=== PATIENT | male | born 1940 | race Caucasian/White ===

== ENCOUNTER 2016-08-19 00:04 | Inpatient (IN) | payer MEDICARE, OTHER ==
[~2016-08-19] VITALS: Ht 182.9 cm; Wt 74.8 kg
[2016-08-19] VITALS (54 sets, daily range): BP systolic 75–110; RESP 16–22; TEMP 98.9–101.3; BMI 22.4
[2016-08-19] MEDS ORDERED: SODIUM CHLORIDE 0.9% 1,000 ML ONE (00:44)
[2016-08-19] MEDS ORDERED: PIPER/TAZO 3.375 GM PYXIS ONE (00:44)
[2016-08-19] MEDS ORDERED: SODIUM CHLORIDE 0.9% 100 ML IV ONE (00:44)
[2016-08-19] MEDS ORDERED: DILTIAZEM 50 MG/10 ML VIAL IV ONE ×2 (02:51→14:05)
[2016-08-19] MEDS ORDERED: ONDANSETRON 4 MG VIAL ONE ×2 (03:02→04:18)
[2016-08-19] MEDS ORDERED: DEXTROSE 50% SYRINGE 50 ML IV PRN (03:35)
[2016-08-19] MEDS ORDERED: PHARMACY TO DOSE VANCOMYCIN IV SCH (03:35)
[2016-08-19] MEDS ORDERED: PHARMACY TO DOSE ZOSYN IV SCH (03:35)
[2016-08-19] MEDS ORDERED: GLUCAGON 1 MG VIAL IM PRN (03:35)
[2016-08-19] MEDS ORDERED: SALINE FLUSH 10 ML FLUSH PRN (03:35)
[2016-08-19] MEDS ORDERED: ACETAMINOPHEN 325 MG TAB ONE (04:19)
[2016-08-19] MEDS ORDERED: ACETAMINOPHEN 650 MG/20.3 ML UDC ONE (04:22)
[2016-08-19] MEDS: **NOTE TO NURSE XX SCH ×2 (05:55→08:02)
[2016-08-19] MEDS: SODIUM CHLORIDE 0.9% FLUSH BAG 500 ML IV SCH (06:00)
[2016-08-19] MEDS ORDERED: DILTIAZEM 125 MG in DEXTROSE 125 ML IV PUSH ONE ×2 (06:05→13:50)
[2016-08-19] MEDS: CARDIZEM 1 MG/ML DRIP 125 ML IV SCH (06:26)
[2016-08-19] MEDS ORDERED: LEVOTHYROXINE 0.125 MG TAB PO SCH (07:00)
[2016-08-19] MEDS: PIPERACIL/TAZO 4.5GM/100ML 100 ML IV SCH ×3 (07:41→18:07)
[2016-08-19] MEDS: SALINE FLUSH 10 ML FLUSH SCH ×2 (07:58→19:40)
[2016-08-19] MEDS: VALPROIC ACID 250 MG/5 ML UDC GTUBE SCH ×2 (07:59→17:02)
[2016-08-19] MEDS ORDERED: DILTIAZEM 60 MG TAB PO SCH (08:00)
[2016-08-19] MEDS ORDERED: LINEZOLID 600 MG/300 ML 300 ML IV SCH (08:00)
[2016-08-19] MEDS: METOPROLOL TART 50 MG TAB GTUBE SCH ×2 (08:02→21:33)
[2016-08-19] MEDS: ASPIRIN 81 MG CHEW TAB GTUBE SCH (08:02)
[2016-08-19] MEDS ORDERED: SODIUM CHLORIDE 0.9% 1,000 ML IV ONE (11:40)
[2016-08-19] MEDS: DUONEB INH SCH ×3 (12:00→23:54)
[2016-08-19] MEDS: DILTIAZEM CD 180 MG CAP GTUBE SCH (16:09)
[2016-08-19] MEDS ORDERED: MISSING DOSE XX ONE ×4 (16:15→23:55)
[2016-08-19] MEDS ORDERED: ACETAMINOPHEN 325 MG TAB GTUBE PRN (18:30)
[2016-08-19] MEDS: SODIUM CHLORIDE 0.9% 1,000 ML IV SCH (19:10)
[2016-08-19] MEDS: LINEZOLID 600 MG TAB GTUBE SCH (21:33)
[2016-08-20] MEDS: PIPERACIL/TAZO 4.5GM/100ML 100 ML IV SCH ×5 (00:10→23:47)
[2016-08-20] MEDS: SODIUM CHLORIDE 0.9% FLUSH BAG 500 ML IV SCH (06:00)
[2016-08-20] MEDS: LEVOTHYROXINE 0.125 MG TAB GTUBE SCH (06:38)
[2016-08-20 07:23] VITALS: BP_SYST 121; RESP 18; TEMP 99
[2016-08-20] MEDS ORDERED: POTASSIUM PHOSPHATE 30 MMOL in SODIUM CHLORIDE 0.9% 250 ML IV ONE (07:25)
[2016-08-20] MEDS ORDERED: KCL 20 MEQ/15 ML UDC PO ONE (07:30)
[2016-08-20] MEDS: DUONEB INH SCH ×3 (08:20→19:09)
[2016-08-20] MEDS: METOPROLOL TART 50 MG TAB GTUBE SCH ×2 (09:12→21:42)
[2016-08-20] MEDS: ASPIRIN 81 MG CHEW TAB GTUBE SCH (09:12)
[2016-08-20] MEDS: FAMOTIDINE 40 MG TAB GTUBE SCH (09:12)
[2016-08-20] MEDS: VALPROIC ACID 250 MG/5 ML UDC GTUBE SCH ×4 (09:12→23:46)
[2016-08-20] MEDS: DILTIAZEM CD 180 MG CAP GTUBE SCH (09:12)
[2016-08-20] MEDS: LINEZOLID 600 MG TAB GTUBE SCH ×2 (09:12→21:42)
[2016-08-20] MEDS: SALINE FLUSH 10 ML FLUSH SCH ×2 (09:12→20:00)
[2016-08-20 10:41] VITALS: Ht 182.9 cm; Wt 74.8 kg
[2016-08-20 11:14] VITALS: BP_SYST 107; RESP 16; TEMP 98.7
[2016-08-20] MEDS: SACCHA BOULARDII 250MG CAP GTUBE SCH ×2 (11:59→21:42)
[2016-08-20 15:08] VITALS: BP_SYST 133; RESP 18; TEMP 98.4
[2016-08-20] MEDS ORDERED: MISSING DOSE XX ONE (18:25)
[2016-08-20 19:00] VITALS: BP_SYST 118; RESP 20; TEMP 98.8
[2016-08-20 22:58] VITALS: BP_SYST 118; RESP 24; TEMP 96.7
[2016-08-21] MEDS: DUONEB INH SCH ×5 (00:04→23:29)
[2016-08-21 02:53] VITALS: BP_SYST 109; RESP 26; TEMP 99.7
[2016-08-21] MEDS ORDERED: DILTIAZEM 50 MG/10 ML VIAL IV ONE (05:10)
[2016-08-21] MEDS: SODIUM CHLORIDE 0.9% FLUSH BAG 500 ML IV SCH (06:00)
[2016-08-21] MEDS: PIPERACIL/TAZO 4.5GM/100ML 100 ML IV SCH (06:22)
[2016-08-21] MEDS: LEVOTHYROXINE 0.125 MG TAB GTUBE SCH (06:22)
[2016-08-21 07:10] VITALS: BP_SYST 126; RESP 20; TEMP 99.7
[2016-08-21] MEDS: SODIUM CHLORIDE 0.9% 1,000 ML IV SCH (07:27)
[2016-08-21] MEDS: DILTIAZEM CD 180 MG CAP GTUBE SCH ×2 (09:00→10:05)
[2016-08-21] MEDS: LINEZOLID 600 MG TAB GTUBE SCH (09:00)
[2016-08-21] MEDS: METOPROLOL TART 50 MG TAB GTUBE SCH ×2 (09:00→16:46)
[2016-08-21] MEDS ORDERED: PHARMACY TO DOSE CEFEPIME IV SCH (09:05)
[2016-08-21] MEDS ORDERED: Furosemide 40 MG/4 ML VIAL IV ONE (09:10)
[2016-08-21] MEDS ORDERED: POTASSIUM PHOSPHATE 30 MMOL in SODIUM CHLORIDE 0.9% 250 ML IV ONE (09:10)
[2016-08-21] MEDS: SALINE FLUSH 10 ML FLUSH SCH ×2 (10:03→21:18)
[2016-08-21] MEDS: VALPROIC ACID 250 MG/5 ML UDC GTUBE SCH ×3 (10:04→23:05)
[2016-08-21] MEDS: FAMOTIDINE 40 MG TAB GTUBE SCH (10:05)
[2016-08-21] MEDS: ASPIRIN 81 MG CHEW TAB GTUBE SCH (10:05)
[2016-08-21] MEDS: SACCHA BOULARDII 250MG CAP GTUBE SCH ×2 (10:06→21:18)
[2016-08-21] MEDS: AMOXICILLIN 400 MG/5 ML GTUBE SCH ×3 (10:08→21:19)
[2016-08-21] MEDS: CEFEPIME 2000 MG/100 ML D5W 100 ML IV SCH ×3 (10:09→23:05)
[2016-08-21] MEDS ORDERED: DILTIAZEM 125 MG in DEXTROSE 125 ML IV PUSH ONE (11:05)
[2016-08-21 12:35] VITALS: BP_SYST 103; RESP 22
[2016-08-21 15:22] VITALS: BP_SYST 119; RESP 20; TEMP 97.9
[2016-08-21] MEDS ORDERED: MISSING DOSE XX ONE (16:15)
[2016-08-21 20:06] VITALS: BP_SYST 128; RESP 22; TEMP 97.3
[2016-08-21 22:43] VITALS: BP_SYST 142; RESP 22; TEMP 96.5
[2016-08-22] MEDS: METOPROLOL TART 50 MG TAB GTUBE SCH ×2 (00:18→09:00)
[2016-08-22 02:29] VITALS: BP_SYST 148; RESP 22; TEMP 96.7
[2016-08-22] MEDS: LEVOTHYROXINE 0.125 MG TAB GTUBE SCH (06:24)
[2016-08-22] MEDS: SODIUM CHLORIDE 0.9% FLUSH BAG 500 ML IV SCH (06:25)
[2016-08-22 07:50] VITALS: BP_SYST 138; RESP 20; TEMP 98.4
[2016-08-22] MEDS: SALINE FLUSH 10 ML FLUSH SCH ×2 (08:00→20:52)
[2016-08-22] MEDS: VALPROIC ACID 250 MG/5 ML UDC GTUBE SCH ×3 (08:00→23:23)
[2016-08-22] MEDS: DUONEB INH SCH ×4 (08:07→22:38)
[2016-08-22] MEDS: AMOXICILLIN 400 MG/5 ML GTUBE SCH ×3 (09:00→20:52)
[2016-08-22] MEDS ORDERED: Furosemide 20 MG/2 ML VIAL IV ONE (10:00)
[2016-08-22] MEDS: FAMOTIDINE 40 MG TAB GTUBE SCH (10:17)
[2016-08-22] MEDS: DILTIAZEM CD 180 MG CAP GTUBE SCH (10:17)
[2016-08-22] MEDS: SACCHA BOULARDII 250MG CAP GTUBE SCH ×2 (10:17→20:52)
[2016-08-22] MEDS: CEFEPIME 2000 MG/100 ML D5W 100 ML IV SCH ×3 (10:18→23:24)
[2016-08-22] MEDS: ASPIRIN 81 MG CHEW TAB GTUBE SCH (10:18)
[2016-08-22 11:37] VITALS: BP_SYST 145; RESP 20; TEMP 99.3
[2016-08-22 14:43] VITALS: BP_SYST 156; RESP 22; TEMP 98.1
[2016-08-22] MEDS: METOPROLOL TART 25 MG TAB GTUBE SCH ×2 (16:48→23:22)
[2016-08-22] MEDS ORDERED: MISSING DOSE XX ONE (19:20)
[2016-08-22 20:11] VITALS: BP_SYST 99; RESP 20; TEMP 98.5
[2016-08-23] VITALS (11 sets, daily range): BP systolic 114–148; RESP 18–20; TEMP 96.7–99.5
[2016-08-23] MEDS: SODIUM CHLORIDE 0.9% FLUSH BAG 500 ML IV SCH (05:27)
[2016-08-23] MEDS: LEVOTHYROXINE 0.125 MG TAB GTUBE SCH (05:29)
[2016-08-23] MEDS: DUONEB INH SCH ×3 (07:48→19:18)
[2016-08-23] MEDS: CEFEPIME 2000 MG/100 ML D5W 100 ML IV SCH ×2 (07:51→17:02)
[2016-08-23] MEDS: VALPROIC ACID 250 MG/5 ML UDC GTUBE SCH ×2 (09:05→16:59)
[2016-08-23] MEDS: SALINE FLUSH 10 ML FLUSH SCH ×2 (09:05→20:02)
[2016-08-23] MEDS: AMOXICILLIN 400 MG/5 ML GTUBE SCH ×3 (09:06→20:02)
[2016-08-23] MEDS: METOPROLOL TART 25 MG TAB GTUBE SCH ×2 (09:06→17:00)
[2016-08-23] MEDS: FAMOTIDINE 40 MG TAB GTUBE SCH (09:06)
[2016-08-23] MEDS: DILTIAZEM CD 180 MG CAP GTUBE SCH (09:06)
[2016-08-23] MEDS: ASPIRIN 81 MG CHEW TAB GTUBE SCH (09:06)
[2016-08-23] MEDS: SACCHA BOULARDII 250MG CAP GTUBE SCH ×2 (09:06→20:02)
[2016-08-23] MEDS ORDERED: DILTIAZEM 125 MG in DEXTROSE 125 ML IV PUSH ONE (23:00)
[2016-08-23] MEDS: CARDIZEM 1 MG/ML DRIP 125 ML IV SCH (23:18)
[2016-08-24] VITALS (21 sets, daily range): BP systolic 86–147; RESP 20; TEMP 98–98.6
[2016-08-24] MEDS: DUONEB INH SCH ×3 (00:18→11:45)
[2016-08-24] MEDS: VALPROIC ACID 250 MG/5 ML UDC GTUBE SCH ×2 (00:35→11:10)
[2016-08-24] MEDS: METOPROLOL TART 25 MG TAB GTUBE SCH ×2 (00:36→11:10)
[2016-08-24] MEDS: CEFEPIME 2000 MG/100 ML D5W 100 ML IV SCH ×2 (00:36→11:09)
[2016-08-24] MEDS: SODIUM CHLORIDE 0.9% FLUSH BAG 500 ML IV SCH (05:53)
[2016-08-24] MEDS: LEVOTHYROXINE 0.125 MG TAB GTUBE SCH (05:54)
[2016-08-24] MEDS: FAMOTIDINE 40 MG TAB GTUBE SCH (11:09)
[2016-08-24] MEDS: SALINE FLUSH 10 ML FLUSH SCH (11:09)
[2016-08-24] MEDS: DILTIAZEM CD 180 MG CAP GTUBE SCH (11:10)
[2016-08-24] MEDS: ASPIRIN 81 MG CHEW TAB GTUBE SCH (11:10)
[2016-08-24] MEDS: SACCHA BOULARDII 250MG CAP GTUBE SCH (11:11)
[2016-08-24] MEDS: AMOXICILLIN 400 MG/5 ML GTUBE SCH (11:11)
== END 2016-08-24 17:33 | disposition home health service (06) | DRG 871 ==
LOC: ENRESERVTM → ENRESERVDT → ER 00:04 → ENPENDDIS 03:32 → EMR 03:32 → 4THW 05:23
PROVIDERS: ADMIT Family Medicine; ATTEND Family Medicine
DX: A41.9 Sepsis, unspecified organism (principal); J15.1 Pneumonia due to Pseudomonas; R40.3 Persistent vegetative state; I48.0 Paroxysmal atrial fibrillation; N39.0 Urinary tract infection, site not specified; E11.9 Type 2 diabetes mellitus without complications; R65.20 Severe sepsis without septic shock; B95.2 Enterococcus as the cause of diseases classified elsewhere; E03.9 Hypothyroidism, unspecified; E83.39 Other disorders of phosphorus metabolism; Z93.1 Gastrostomy status; Z93.0 Tracheostomy status; Z79.82 Long term (current) use of aspirin; Z79.01 Long term (current) use of anticoagulants; Z79.4 Long term (current) use of insulin; Z79.52 Long term (current) use of systemic steroids; E86.1 Hypovolemia
CPT/HCPCS: 31720; 36415; 51702; 71010; 80048; 80053; 81001; 82553; 82947; 83605; 83735; 83880; 84100; 84484; 85025; 85379; 85610; 87040; 87071; 87077; 87088; 87186; 87278; 87299; 87493; 94640; 94799; 96361; 96365; 96375; 96376; 99222; 99232; 99233; 99239